=== PATIENT | male | born 2000 | race African-American/Black ===

== ENCOUNTER 2019-05-02 02:47 | Emergency (ER) | payer OTHER ==
[~2019-05-02] VITALS: Ht 175.3 cm; Wt 77.1 kg
[2019-05-02 02:52] VITALS: BP 159/76
[2019-05-02] MEDS ORDERED: TORADOL IV STA (03:02)
--- NOTE | 2019-05-02 03:05 | ER.PDOC ---
General Chief Complaint: Trauma Stated Complaint: FALL Time seen by MD: 03:04 Source: patient Exam Limitations: no limitations History of Present Illness Initial Comments Head, neck and back pain S/P fall from a bonk bed. Where: work ([employer]) Severity: moderate Injuries/Pain Location: head, neck, back Context: Lost Balance Loss of Consciousness: No Loss of Consciousness Associated Symptoms: headache, neck pain Past Medical History Medical History: no pertinent history Social History Smoking: non-smoker Alcohol Use: occassionally Drug Use: marijuana Review of Systems Constitutional: no symptoms reported Ears, Nose, Mouth, Throat: no symptoms reported Respiratory: no symptoms reported Cardiovascular: no symptoms reported Gastrointestinal: no symptoms reported Musculoskeletal: see HPI All Other Systems: Reviewed and Negative Physical Exam General Appearance: No Apparent Distress, WD/WN Head: No Evidence of Injury Neck: Tenderness Cardiovascular/Respiratory: Regular Rate, Rhythm, No M/R/G, Normal Peripheral Pulses, No JVD, Normal Breath Sounds, No Respiratory Distress Gastrointestinal: Normal Bowel Sounds, No Organomegaly, No Pulsatile Mass, Non Tender, Soft Back: Vertebral Tenderness Extremities: No Evidence of Injury, Normal Range of Motion, Non-Tender, No Pedal Edema 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, No Motor/Sensory Deficits, Alert, Normal Mood/Affect, Oriented x 3 Skin: Normal Color, Warm/Dry Lucila Coma Score Best Eye Response: (4) Open Spontaneously Best Verbal Response: (5) Oriented Best Motor Response: (6) Obeys Commands Results/Orders Results/Orders Orders - CHERRI COOPER MD Ct Head Wo Contrast (05/02/19 03:02) Ct Cervical Spine (05/02/19 03:02) Ct Thoracic Wo Contrast (05/02/19 03:02) Ct Lumbar Wo Contrast (05/02/19 03:02) Ketorolac Tromethamine (Toradol) (05/02/19 03:02) Ketorolac Tromethamine (Toradol) (05/02/19 03:18) Vital Signs Date Time Temp Pulse Resp B/P (MAP) Pulse Ox O2 Delivery O2 Flow Rate FiO2 05/02/19 04:12 55 18 120/67 (84) 100 Room Air 05/02/19 02:52 22 05/02/19 02:52 60 22 159/76 (103) 100 Room Air 05/02/19 02:48 60 22 100 Room Air 05/02/19 02:48 60 22 Administered Medications Medications (Trade) Dose Ordered Sig/Gabriel Route PRN Reason Start Time Stop Time Status Last Admin Dose Admin Ketorolac Tromethamine (Toradol) 30 mg STAT STAT IV 05/02/19 03:02 05/02/19 03:05 DC 05/02/19 03:21 30 MG EKG/XRAY/CT/US CT Comments: Nothing acute on CT head, C, T and L spines. Departure Time of Disposition: 04:41 Disposition: 01 HOME, SELF-CARE Impression: Primary Impression: Multiple contusions Condition: Stable Referrals: PCP,UNKNOWN (PCP) PRIMARY CARE PROVIDER Additional Instructions: Ibuprofen F/U with PCP in 1 week Duration or Time Spent with Pa: 90 mins CHERRI COOPER MD May 02, 2019 03:05
[2019-05-02] MEDS ORDERED: TORADOL ONE (03:18)
--- NOTE | 2019-05-02 04:01 | DIREP ---
PROCEDURE:CT HEAD OR BRAIN W/O CONTRAST COMPARISON:None. INDICATIONS:Pain S/P fall TECHNIQUE:CT images were created without intravenous contrast. The study was reviewed on brain, subdural and bone windows. FINDINGS: VENTRICLES:The ventricles are normal in size and configuration. CEREBRUM:Normal cerebral morphology with appropriate rivera white matter differentiation. No acute infarct, bleed or mass lesion is seen. No acute or chronic epidural, subdural subarachnoid hemorrhage is seen. No edema, midline shift or increased intracranial pressure is seen. No hemorrhagic contusions or intraventricular hemorrhage is seen. No skull fracture or scalp hematoma is seen. CEREBELLUM:Negative. BRAINSTEM:Negative. BASAL CISTERNS:Negative. HEMORRHAGE:No MASS LESION:No ACUTE INFARCT:No SKULL:Normal. SINUSES:Normal. OTHER:None CONCLUSION:Negative noncontrast CT of the head. Dictated by: Arnav Duarte MD on 05/02/2019 at 04:00 AM
--- NOTE | 2019-05-02 04:10 | DIREP ---
PROCEDURE: CT SPINE CERVICAL W/O COMPARISON:None. INDICATIONS:Pain S/P fall FINDINGS: ALIGNMENT:Normal. VERTEBRAE:Normal. The odontoid is intact. No acute fracture or facet subluxation is seen. PARASPINAL AREA:Normal. OTHER:No additional findings. CERVICAL DISC LEVELS C2-C3:Normal. C3-C4:Normal. C4-C5:Normal. C5-C6:Normal. C6-C7:Normal. C7-T1:Normal. T1-2, T2-3 and T3-4: Negative. No epidural hematoma or acute disc herniation is seen. CONCLUSION:Negative noncontrast CT of the head. No acute fracture or facet subluxation is seen. No focal disc or epidural hematoma is seen. Dictated by: Arnav Duarte MD on 05/02/2019 at 04:06 AM
--- NOTE | 2019-05-02 04:11 | DIREP ---
PROCEDURE:CT SPINE THORACIC W/O COMPARISON:None. INDICATIONS:Pain S/P fall TECHNIQUE:Multi-planar CT images were obtained and created without intravenous contrast. FINDINGS: VERTEBRAE: No compression fractures are seen. Vertebral body, lamina, pedicles, spinous and transverse processes are intact. Costovertebral and costal transverse articulation is satisfactory. PARASPINAL AREA:Normal. DISC LEVELS:No acute disc herniation or epidural hematoma is seen. ALIGNMENT:Normal. OTHER:Negative. CONCLUSION:Negative CT of the thoracic spine. Dictated by: Arnav Duarte MD on 05/02/2019 at 04:09 AM
[2019-05-02 04:12] VITALS: BP 120/67
--- NOTE | 2019-05-02 04:15 | DIREP ---
PROCEDURE: CT SPINE LUMBAR W/O TECHNIQUE:Axial cuts were obtained through the lumbar spine. The images were viewed at bone settings. COMPARISON:None. INDICATIONS:Pain S/P fall FINDINGS: ALIGNMENT:Lumbar lordosis is preserved. No spondylolisthesis is seen. VERTEBRAE:Normal. No acute fracture is seen. The vertebral body, lamina, pedicles, spinous and transverse processes are intact. No sacral fractures are seen. PARASPINAL AREA:Normal. OTHER:No additional findings. LUMBAR DISC LEVELS T12-L1:Normal. L1-L2:Normal. L2-L3:Normal. L3-L4:Disc bulge with narrowing of intervertebral foramen and lateral recesses. No focal disc is seen. L4-L5:Mild bulge. No focal disc is seen. Mild narrowing of intervertebral foramen and lateral recesses. L5-S1:Mild bulge. Narrowing of intervertebral foramina. No central stenosis is seen. CONCLUSION:Disc bulges at L3-4, L4-5 and L5-S1. No acute compression fractures or traumatic spondylolisthesis is seen. Dictated by: Arnav Duarte MD on 05/02/2019 at 04:11 AM
[2019-05-02 04:55] VITALS: BP 120/67
== END 2019-05-02 04:49 | disposition home or self-care (01) ==
LOC: ER 02:47
DX: S30.0XXA Contusion of lower back and pelvis, initial encounter (principal); W06.XXXA Fall from bed, initial encounter; Y93.89 Activity, other specified; Y92.148 Other place in prison as the place of occurrence of the external cause; Y99.8 Other external cause status
CPT/HCPCS: 70450; 72125; 72128; 72131; 96372; 99285; J1885